=== PATIENT | female | born 1975 | race Caucasian/White ===

== ENCOUNTER 2021-01-04 09:17 | Emergency (ER) | payer MEDICAID ==
--- NOTE | 2021-01-04 10:20 | XRAY Report ---
PROCEDURE: Chest 1 View X-Ray INDICATIONS: chest pain TECHNIQUE: One view of the chest was acquired. COMPARISON: None. FINDINGS: Surgical changes and devices: None. Lungs and pleura: No pleural effusions or pneumothorax. Lungs are clear. Mediastinum: Mediastinal contours appear normal. Heart size is normal. Bones and chest wall: No suspicious bony lesions. Overlying soft tissues appear unremarkable. IMPRESSION: CHEST WITHOUT ACUTE CARDIOPULMONARY ABNORMALITIES. Reviewed by: Boom Conde MD on 01/04/2021 9:19 AM JESI Approved by: Boom Conde MD on 01/04/2021 9:19 AM JESI Station ID: [id number]
--- NOTE | 2021-01-04 11:18 | ED Physician Documentation ---
PD HPI URI - Stated complaint Stated Complaint: SOA, - Chief complaint Chief Complaint: Resp - History obtained from History obtained from: Patient - Additional information Additional information: PT comes to the ED, stating she thinks she has COVID. She got her 1st vaccine dose 5 days ago, and has developed shortness of breath, nasal congestion and loss of taste/smell in the past 2 days. Pt states she has not had any fevers. No cough. She is a smoker. 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 No known sick contacts. Review of Systems Ten Systems: 10 systems reviewed and negative Constitutional: reports: Reviewed and negative Eyes: reports: Reviewed and negative Ears: reports: Reviewed and negative Nose: reports: Congestion Throat: reports: Reviewed and negative Cardiac: reports: Reviewed and negative Respiratory: reports: Dyspnea GI: reports: Reviewed and negative : reports: Reviewed and negative Skin: reports: Reviewed and negative Musculoskeletal: reports: Reviewed and negative Neurologic: reports: Reviewed and negative Psychiatric: reports: Reviewed and negative Endocrine: reports: Reviewed and negative Immunocompromised: reports: Reviewed and negative PD PAST MEDICAL HISTORY - Past Medical History Past Medical History: Yes - Past Surgical History Past Surgical History: No /CERTIFIED MEDICAL DOSIMETRIST: section, Tubal ligation HEENT: Other - Social History Does the pt smoke?: Yes Smoking Status: Current some day smoker PD ED PE NORMAL - Vitals Vital signs reviewed: Yes - General General: Alert and oriented X 3, No acute distress (Pt is animated, talking without difficulty, well-appearing), Well developed/nourished - HEENT HEENT: Atraumatic, PERRL, EOMI, Moist mucous membranes - Neck Neck: Supple, no meningeal sign - Cardiac Cardiac: RRR, No murmur - Respiratory Respiratory: No respiratory distress, Clear bilaterally - Abdomen Abdomen: Soft, Non tender, Non distended - Derm Derm: Warm and dry - Extremities Extremities: No deformity - Neuro Neuro: Alert and oriented X 3, paper deliverer 2-12 intact, Normal speech, Other (Grossly normal) - Psych Psych: Normal mood, Normal affect Results - Vitals Vitals: Oxygen O2 Source Room air - Labs Labs: Laboratory Tests 01/04/21 10:24 Coronavirus (PCR) NEGATIVE - Rads (name of study) CXR Radiology: Final report received, EMP read indepedently, See rad report (neg) PD MEDICAL DECISION MAKING - ED course Complexity details: reviewed results, re-evaluated patient, considered differential, d/w patient ED course: PT was worked up with CXR and covid test. CXR was negative. Pt has been instructed to quarantine until results come back. has already been tested and is negative. Departure - Departure Disposition: 01 Home, Self Care Clinical Impression: Upper respiratory tract infection Qualifiers: URI type: unspecified viral URI Qualified Code(s): J06.9 - Acute upper respiratory infection, unspecified Condition: Stable Instructions: ED Viral Syndrome Comments: Chest x-ray looks great. Your Covid test is pending at this time and will most likely be back sometime tomorrow. If your test results are positive, you will be contacted at home. If negative, you will not be contacted, but can get in touch with medical records to arrange to receive your results. Until you have a negative result, you should quarantine. You may use ibuprofen and Tylenol as needed for aches and pains, and should drink plenty of fluids. Please do continue to abstain from smoking. Discharge Date/Time: 01/04/21 11:28
[2021-01-04 11:28] VITALS: BP 110/83
== END 2021-01-04 11:28 | disposition home or self-care (01) ==
LOC: ED 09:17
DX: J06.9 Acute upper respiratory infection, unspecified (principal); F17.200 Nicotine dependence, unspecified, uncomplicated; Z20.822 Contact with and (suspected) exposure to COVID-19
CPT/HCPCS: 99282; 99284